=== PATIENT | male | born 1940 | race Two or more races ===

== ENCOUNTER 2023-04-29 13:55 | Outpatient (CLI) | payer OTHER | END 2023-04-29 14:06 | disposition home or self-care (01) | LOC: RAD 13:55 | PROVIDERS: ATTEND Orthopaedic Surgery | DX: M25.551 Pain in right hip (principal); M25.552 Pain in left hip; M25.561 Pain in right knee; M25.562 Pain in left knee ==

== ENCOUNTER 2023-05-19 17:03 | Outpatient (CLI) | payer OTHER | END 2023-05-19 17:06 | disposition home or self-care (01) | LOC: LAB 17:03 | PROVIDERS: ATTEND Urology | DX: R97.20 Elevated prostate specific antigen [PSA] (principal) ==

== ENCOUNTER 2023-07-02 07:21 | Outpatient (CLI) | payer OTHER | END 2023-07-02 07:28 | disposition home or self-care (01) | LOC: SONOGRAMA 07:21 | PROVIDERS: ATTEND Urology | DX: C61 Malignant neoplasm of prostate (principal); D29.1 Benign neoplasm of prostate ==